=== PATIENT | male | born 1940 | race Caucasian/White ===

== ENCOUNTER → 2023-09-26 07:51 | Outpatient (REF) | payer MEDICARE, BC, SELFPAY | LOC: RAD 07:51 | PROVIDERS: ATTENDING PHYSICIAN Otolaryngology; FAMILY PHYSICIAN Family Medicine | DX: C44.222 Squamous cell carcinoma of skin of right ear and external auricular canal (principal) | CPT/HCPCS: 70492; Q9967 ==

== ENCOUNTER → 2023-11-07 16:34 | Outpatient (REF) | payer MEDICARE, BC, SELFPAY | LOC: RAD 16:34 | PROVIDERS: ATTENDING PHYSICIAN Otolaryngology; FAMILY PHYSICIAN Family Medicine | DX: E04.1 Nontoxic single thyroid nodule (principal) | CPT/HCPCS: 76536 ==

== ENCOUNTER → 2023-12-06 10:29 | Outpatient (REF) | payer MEDICARE, BC, SELFPAY ==
[2023-12-06 10:42] VITALS: BP 104/74; BP_SYST 83
== END ==
LOC: RADI 10:29
PROVIDERS: ATTENDING PHYSICIAN Otolaryngology; FAMILY PHYSICIAN Family Medicine
DX: E04.1 Nontoxic single thyroid nodule (principal)
CPT/HCPCS: 88173; 10005

== ENCOUNTER → 2024-01-19 07:12 | Outpatient (REF) | payer MEDICARE, BC, SELFPAY ==
[2024-01-19 08:54] LABS: Hematocrit 40.8 % (39.0-52.0); Hemoglobin 13.7 g/dL (13.0-18.0); Mean Corp Hgb Conc. 33.6 g/dL (33.0-37.0); Mean Corpuscular Volume 86.4 fL (80.0-94.0); Mean Platelet Volume 10.6 fL (7.4-10.4); Platelet Count 108 10^3/uL (130-400); Red Blood Cell Count 4.72 10^6/uL (4.70-6.10); Red Cell Dist. Width 13.5 % (11.5-14.5); White Blood Cell Count 4.2 10^3/uL (4.8-10.8)
[2024-01-19 09:26] LABS: ALT (SGPT) 15 U/L (0-50); AST (SGOT) 25 U/L (17-59); Albumin 4.2 g/dl (3.5-5.0); Alkaline Phosphatase 50 U/L (38-126); Blood Urea Nitrogen 34 mg/dl (9-20); Calcium 9.4 mg/dl (8.4-10.2); Carbon Dioxide 26 mmol/L (22-30); Chloride 105 mmol/L (98-107); Glucose 94 mg/dl (70-99); Potassium 4.4 mmol/L (3.5-5.1); Sodium 140 mmol/L (135-145); Total Bilirubin 1.5 mg/dl (0.2-1.3); Total Protein 6.8 g/dl (6.3-8.2); eGFR > 60.00
== END ==
LOC: SDSPAT 07:12
PROVIDERS: ATTENDING PHYSICIAN Otolaryngology; FAMILY PHYSICIAN Family Medicine; OTHER PHYSICIAN Internal Medicine Cardiovascular Disease; OTHER PHYSICIAN Specialist
DX: Z01.818 Encounter for other preprocedural examination (principal)
CPT/HCPCS: 36415; 80053; 85027

== ENCOUNTER 2024-02-08 06:18 | Day surgery (SDC) | payer MEDICARE, BC, SELFPAY ==
[2024-01-19 07:29] VITALS: BMI 27.9
[2024-02-08] VITALS (15 sets, daily range): BP systolic 10–126; BP diastolic 54–88; BMI 27.9
[2024-02-08 14:05] LABS: Ionized Calcium 1.14 mMOL/L (1.15-1.33)
[2024-02-08] MEDS: DILAUDID 0.25 MG IV (14:46)
--- NOTE | 2024-02-08 15:55 | PTCARENOTE ---
Pt arrived to [facility] from PACU s/p total thyroidectomy. Pt AAOx3, anterior neck dressing C/D/I, YAKELIN to the left of anterior neck draining sanguinous. Pt satting 96% on 2L NC. Pt c/o headache. Pt oriented to room, bed locked and in lowest position,
call chao within reach.
[2024-02-08] MEDS: TYLENOL 650 MG PO ×2 (16:28→20:54)
[2024-02-08] MEDS: OSCAL 500 + D 1000 MG PO ×2 (16:45→20:52)
[2024-02-08 21:19] LABS: Glucose - Point of Care 175 mg/dl (70-99)
[2024-02-09 03:47] VITALS: BP 102/63
[2024-02-09] MEDS: TYLENOL 650 MG PO ×2 (05:20→12:36)
[2024-02-09] MEDS: SYNTHROID 125 MCG PO (05:21)
[2024-02-09 07:06] LABS: Ionized Calcium 1.19 mMOL/L (1.15-1.33)
[2024-02-09 07:10] VITALS: BP 102/64
[2024-02-09] MEDS: TOPROL XL 50 MG PO (08:22)
[2024-02-09] MEDS: COZAAR 100 MG PO (08:22)
[2024-02-09] MEDS: IMDUR (EXTENDED RELEASE) 30 MG PO (08:23)
[2024-02-09] MEDS: THERAGRAN 1 TABLET PO (08:23)
[2024-02-09] MEDS: PROSCAR 5 MG PO (08:23)
[2024-02-09] MEDS: LIPITOR 40 MG PO (08:23)
[2024-02-09] MEDS: FLOMAX 0.4 MG PO (08:24)
[2024-02-09] MEDS: OSCAL 500 + D 1000 MG PO (08:26)
[2024-02-09 11:05] VITALS: BP 90/55
[2024-02-09 11:21] VITALS: BP 104/58
--- NOTE | 2024-02-09 12:11 | W.PN.ENT ---
Today's Communication
-
d/c planning
Impression / Plan
-
The patient is doing well POD 1 s/p total thyroidectomy for a large left thyroid mass. No signs of hematoma, change in voice or hypocalcemia. He will remain on OsCal at d/c and will taper as an outpatient. He has started levothyroxine and will
continue as an outpatient and see endocrinology. D/C planning.
Subjective Data
-
The patient denies pain this AM. He tolerated a diet without issue. He has some sore throat but no fever. He denies change in voice. No muscle cramping. BP was low this am. He reports he has been cutting one of his BP meds in half at home recently.
Denies lightheadedness
Objective Data
-
Vital Signs
Temp Pulse Resp BP Pulse Ox
97.7 F 79 16 104/58 96
02/09/24 11:05 02/09/24 11:05 02/09/24 11:05 02/09/24 11:21 02/09/24 11:05
Intake & Output
02/08/24 02/09/24 02/10/24
06:59 06:59 06:59
Intake:
Oral fluids 1440 / 1440
IV fluids (Total) 0 / 0
IV piggybacks 0 / 0
Output:
Drain Output (Total) 40 / 40
Left Neck Red-Menjivar A 40 / 40
Urine, Victor 800 / 800
Urine, Voided 650 / 650
Physical Exam
-
GEN: NAD, alert and oriented
HEENT: Dressing in place, YAKELIN drain stitch cut and removed. YAKELIN removed. Wound dressed with gauze and tape.
RESP: No stridor, no hoarseness
Labs
-
Labs:
Ionized calcium 1.14 --> 1.19
--- NOTE | 2024-02-09 13:03 | CM ---
Met with pt and family members at bedside
Pt reports he lives with his in a 2 story home; no steps to enter, 13 steps to 2nd fl
Independent at baseline, retired
DME - none
SNF - [facility] in past
HH - denies past hx
Has ride at discharge
PCP - Dr Sen
Pharm - [facility]
Plan - anticipate home no needs
== END 2024-02-09 13:40 | disposition home or self-care (01) ==
LOC: SDS 06:18
PROVIDERS: ATTENDING PHYSICIAN Otolaryngology; FAMILY PHYSICIAN Family Medicine
DX: C73 Malignant neoplasm of thyroid gland (principal); E04.2 Nontoxic multinodular goiter; E07.9 Disorder of thyroid, unspecified
CPT/HCPCS: 60240; 88307; 82330; 82962; C1776

== ENCOUNTER 2024-02-10 02:28 | Inpatient (IN) | payer MEDICARE, BC, SELFPAY ==
[2024-02-10] VITALS (26 sets, daily range): BP systolic 85–121; BP diastolic 58–84; BMI 27.2; BMI 26.6
[2024-02-10] MEDS: BENADRYL 50 MG IV (00:11)
[2024-02-10] MEDS: LOW STRENGTH ASPIRIN 324 MG PO (00:13)
[2024-02-10] MEDS: SOLU-CORTEF 200 MG IV (00:13)
--- NOTE | 2024-02-10 00:13 | ED.GENMED ---
History of Present Illness
General
Chief Complaint: Chest Pain
Source: patient, spouse and previous hospital records (Status post thyroidectomy yesterday. Discharged this morning)
Exam Limitations: none
Time Seen by Provider: 02/10/24 00:00
Nursing documentation reviewed up to this point in time: agreed with
History of Present Illness
History of Present Illness:
This is an 83-year-old gentleman with history of CAD, hypertension, hyperlipidemia, remote history of MD 20 years ago. Status post thyroidectomy yesterday, discharged from the hospital today.
He complains of substernal chest pain that began around 8 PM, persistent throughout the night. No shortness of breath, no nausea, no diaphoresis, no dizziness nor lightheadedness. does note that blood pressure was quite low upon discharge
this morning 80s systolic but patient had been feeling well.
He is chronically maintained on low-dose aspirin but this was discontinued 2 weeks ago in preparation for thyroidectomy.
Past History
Past History
ED Past Medical History: HTN and MD
ED Past Surgical History: Orthopedic (right rotator cuff repair)
Social History
Tobacco: Non-smoker
Alcohol: None
Drug: None
Personal:
Living: with family
Phy Exam
Physical Exam
Physical Exam:
GENERAL: 83-year-old gentleman appears his stated age, awake, alert, appears mildly uncomfortable. Cooperative. and daughter accompanying.
EYE: pupils equal and reactive. anicteric
NECK: 4 x 4 dressing anterior neck with scant serosanguineous drainage with dry and intact Tegaderm overlying. No soft tissue swelling.
ENT: posterior pharynx is clear, oral mucosa is moist. No rhinorrhea.
CARDIAC: Regular rate and rhythm. no murmur.
LUNGS: Clear breath sounds bilaterally, no acute respiratory distress, no wheezes/rales/rhonchi
ABDOMEN: Soft, nondistended, without focal tenderness, normoactive bowel sounds.
NEUROLOGICAL: Alert and oriented x3, no focal neuro deficits.
SKIN: Warm and dry, mildly pale in color, skin intact. No rash.
MUSCULOSKELETAL: No C/C/E. peripheral pulses are full and equal b/l. No palpable tenderness.
PSYCH: Normal and appropriate interaction.
Scores
Heart Score for Chest Pain Patients
STEMI patient?: Yes
Course
Orders/Labs/Results
Orders:
Orders
02/09/24 23:56
Electrocardiogram (*1) Urgent
Reason for Study: Chest Pain
EKG- Treatment ONCE
Complete Blood Count/With Diff Urgent
Comprehensive Metabolic Panel Urgent
Troponin I Urgent
02/10/24 00:03
EKG [Electrocardiogram (*1)] Urgent
Reason for Study: Chest Pain
02/10/24 00:04
EKG- Treatment ONCE
02/10/24 00:08
Aspirin Chewable [Low Strength Aspirin] 324 mg PO NOW STA
Diphenhydramine [Benadryl] 50 mg IV NOW STA
Hydrocortisone Sod Succinate [Solu-Cortef] 200 mg IV NOW STA
02/10/24 00:11
PTT Urgent
02/10/24 00:21
Heparin 5,000 units .ROUTE .STK-MED ONE
02/10/24 00:22
Fentanyl Citrate/Pf [Sublimaze] 100 mcg .ROUTE .STK-MED ONE
Midazolam HCl [Versed] 2 mg .ROUTE .STK-MED ONE
Verapamil Injectable [Isoptin/Verapamil Injection] 5 mg .ROUTE .STK-MED ONE
02/10/24 00:23
Heparin 10,000 units .ROUTE .STK-MED ONE
Heparin 1000 Units/500 ml [Heparin] 1,000 units in 500 ml .ROUTE .STK-MED
Heparin Sodium,Porcine/Ns/Pf [Heparin 2000 Units/1000 ml] 2,000 unit in 1,000 ml .ROUTE .STK-MED
Nitroglycerin [Tridil] 1,500 mcg .ROUTE .STK-MED ONE
02/10/24 01:21
Heparin 1000 Units/500 ml [Heparin] 1,000 units in 500 ml .ROUTE .STK-MED
02/10/24 01:47
Ticagrelor [Brilinta] 180 mg .ROUTE .STK-MED ONE
02/10/24 02:19
Admit Patient As Directed
Co-Sign Provider:
Level of Care: Inpatient admission
Assign to:: IVU
Physician / Group: Chapito until 7AM, then DCA
Diagnosis: Inferior STEMI
Patient Condition: Fair
Reason for Hospitalization: Inferior STEMI
Expected length of stay greater than two midnights?: Yes
ELOS- Estimated Length of Stay in days: 3
I certify the patient meets the requirements for IP care: Yes
Reason for Overnight Stay: Standard of Care
Electrocardiogram (*1) Urgent
Reason for Study: Other
Other Reason for Exam: s/p intervention
Code Status As Directed
Resuscitation Status: Full Code
CARDIAC REHAB CONSULT Routine
Co-Sign Provider:
Type of Cardiac Rehab Referral: Outpatient
Diagnosis: STEMI
Date of Diagnosis/Surgery: 02/10/2024
Referring Provider: Abel Uriarte
Acetaminophen [Tylenol] 650 mg PO Q4HPRN PRN
Fentanyl Citrate/Pf [Sublimaze] 50 mcg IV [id number] PRN
Midazolam HCl [Versed] 1 mg IV Q5MPRN PRN
Morphine Sulfate 2 mg IV Q1HPRN PRN
Nitroglycerin Sublingual [Nitrostat (Sublingual)] 0.4 mg SL [id number] PRN
Oxycodone/Acetaminophen [Percocet 5/325] 1 tablet PO Q4HPRN PRN
Activity As Directed
Activity Level: Out of Bed- Chair
Comment: bed/chair rest for 2 hours then out of bed ad юлия
Combat Systems Officer Procedure As Directed
Cardiac Cath Procedure: percutaneous coronary intervention
Intake/ Output As Directed
Frequency: Per unit guidelines
Notify MD As Directed
Notify physician if: immediately for chest pain or bleeding from access site(s)
Radial Artery Hemostasis Method As Directed
Instructions:: 3 mL out at 2 hour posts placement of band
3 mL out at 2 1/2 hours post placement of band
3 mL out at 3 hours post placement of band
Off at 3 1/2 hours post placement of band
If any oozing or hemotoma occurs:: re-inflate band and call provider
Site Checks As Directed
Check access site for bleeding/hematoma: Yes
Comment: on arrival, Q15min x4, Q30min x2, Q1 hr x2, Q2 hr x2, Q4 hr or per
protocol
Vascular Checks As Directed
Location: distal to access site - pulse check
Frequency: Other
Comment: on arrival, Q15min x4, Q30min x2, Q1 hr x2, Q2 hr x2, Q4 hr or per protocol
Venous Foot Pumps As Directed
Location: Bilateral feet
Vital Signs As Directed
Frequency: Other
Additional Instructions:: on arrival, Q15min x4, Q30min x2, Q1 hr x2, Q2 hr x2, then Q4 hr or per unit
protocol
PRN Pain Medication Management As Directed
May give lesser potent ordered pain med per pt: Yes
preference::
Protocol:: Medication orders for pain may be administered in a
manner that supports deferring to patient preference
when the pt is:
- Requesting an ordered lesser potent pain medication.
Least to most potent pain medications are defined
as: acetaminophen < NSAID < tramadol < opioids
(morphine, oxycodone, hydromorphone).
- Requesting a lesser dose of the same medication IF
ORDERED.
- Requesting a less intrusive route of administration
if both routes are prescribed by the provider (PO <
IV).
02/10/24 02:20
Activity As Directed
Activity Level: Bedrest
Comment: refer to hemostasis device used for bedrest duration, then ambulate ad юлия
Femoral Artery Hemostasis Method As Directed
Procedure performed:: Percutaneous Coronary Int
Type of femoral hemostasis method used:: Internal Closure Device
Duration of bedrest (hours):: 3
Call provider if:: hematoma present after hemostasis achieved
Head of Bed-Restrictions As Directed
Comment: may elevate head of bed 30 degrees
DX Deep Vein Thrombosis Video Routine
02/10/24 02:30
0.9% Sodium Chloride 1000 ml [Nss] 1,000 ml IV PER PROTOCOL
Infusion rate in mL/kg/hr:: 1.5
Infusion rate in mL/hr:: 122
Duration of infusion (hours):: 5
02/10/24 03:48
Basic Metabolic Panel IN AM
Complete Blood Count/No Diff IN AM
Glycohemoglobin (HgbA1c) Routine
Magnesium Routine
Comment: ADD ON
Troponin I Q6H
02/10/24 06:00
Echo 2D MMode Color/Doppler IN AM
Reason for Study: Inferior STEMI
Electrocardiogram (*1) IN AM
Reason for Study: Other
Other Reason for Exam: s/p intervention
Cholesterol Lowering
Cholesterol Lowering: Sodium, 2 Gram
Levothyroxine [Synthroid] 125 mcg PO DAILY @ 0600
02/10/24 08:00
Aspirin Chewable [Low Strength Aspirin] 81 mg PO DAILY
Atorvastatin [Lipitor] 40 mg PO DAILY
Cholecalciferol (Vitamin D3) [VITAMIN D3 (cholecalciferol)] 50 mcg PO DAILY
Cyanocobalamin [Vitamin B-12] 1,000 mcg PO DAILY
Finasteride [Proscar] 5 mg PO DAILY
ISOSORBIDE MONOnitrate ER [Imdur (Extended Release)] 30 mg PO DAILY
Losartan [Cozaar] 100 mg PO DAILY
Metoprolol Xl [Toprol Xl] 50 mg PO DAILY
Multivitamin [Theragran] 1 tablet PO DAILY
Ticagrelor [Brilinta] 90 mg PO BID
azelastine 1 spray NASAL BID
02/10/24 08:30
Troponin I Q6H
02/10/24 09:00
Tamsulosin [Flomax] 0.4 mg PO DAILY@0900
02/10/24 14:30
Troponin I Q6H
02/11/24 06:00
Basic Metabolic Panel IN AM
Complete Blood Count/No Diff IN AM
02/12/24 06:00
Basic Metabolic Panel IN AM
Complete Blood Count/No Diff IN AM
Abnormal Lab Results
02/10/24
00:11
RBC 4.20 L 10^6/uL
(4.70-6.10)
Hgb 12.3 L g/dL
(13.0-18.0)
Hct 36.1 L %
(39.0-52.0)
Plt Count 116 L 10^3/uL
(130-400)
MPV 10.5 H fL
(7.4-10.4)
Abs Immat Gran (auto) 0.1 H 10^3/uL
(0-0.05)
Absolute Monos (auto) 0.7 H 10^3/uL
(0.1-0.6)
Immature Gran % 1.4 H %
(0-0.5)
Monocytes % 10.6 H %
(1.7-9.3)
BUN 36 H mg/dl
(9-20)
Glucose 117 H mg/dl
(70-99)
Total Bilirubin 1.4 H mg/dl
(0.2-1.3)
Alkaline Phosphatase 30 L U/L
(38-126)
02/10/24 00:11
02/10/24 00:11
Vital Signs
Initial and Last Documented VS:
Initial Vital Signs
Pulse Resp
63 15
02/10/24 00:03 02/10/24 00:03
Last Documented Vital Signs
Temp Pulse Resp BP Pulse Ox
98 F 74 23 116/84 94
02/10/24 02:59 02/10/24 00:15 02/10/24 00:15 02/10/24 00:33 02/10/24 04:59
MDM/Problems Addressed
Differential Diagnosis Includes:
Patient presents with chest pain that began a few hours ago, EKG consistent with STEMI�acute inferior wall MD, new compared to previous EKG.
Urgent discussion with interventional cardiology, STEMI alert initiated 0005.
Patient has been given 324 mg chewable aspirin.
I have placed a call to ENT to discuss relative contraindication for initiation of heparin�antiplatelet.
Chronic conditions affecting care: HTN, CAD and Other (Hyperlipidemia, thyroidectomy performed yesterday)
Acute Exacerbation and/or Progression of Chronic Illness: CAD
*Pulse Oximetry
Patient hypoxic: no
*EKG
Interpreted by ED Provider?: Yes
Interpretation: abnormal
Comparison EKG: changes noted
Rate: bradycardiac
Rhythm: sinus and PVC's
Mclean: normal axis
Interval: normal interval
QRS Pattern: normal QRS
Ischemia: ST elevation (Acute STEMI, inferior wall MD with reciprocal depression anteriorly)
*Financial Underwriter Interpretation
Rate: bradycardiac
Interpretation: abnormal
Rhythm: sinus and PVC's
*Critical Care Note
Total Time (30-74mins, 75-104mins- exclusive of procedures): 30
comment:
Critical care statement: A total of 30 minutes of critical care time was provided for this patient. This includes management of unstable vital signs, evaluation of the patient at bedside, reviewing the patient's pertinent medical records, discussion
with consultants, review of old EKGs and review of pertinent medical records. This time with separate from time utilized to perform the aforementioned documented procedures
Update Note
Update Note:
02/10/2024 00:05 AM
EKG shows STEMI, acute inferior wall MD, new compared to previous.
Case urgently discussed with interventional cardiology, Dr. Matthews. Although status post thyroidectomy yesterday he agrees with initiating STEMI alert. Will begin promptly.
Will give 324 mg chewable aspirin.
Call placed to ENT to discuss potential contraindication for heparin/antiplatelet.
reports allergy to IV contrast causing nausea, vomiting. Will pretreat with Solu-Cortef and Benadryl.
02/10/2024 0014 AM
Case discussed with ENT. Although certainly risk for bleeding, benefit outweighs the risk.
Will give IV heparin bolus and discussed Brilinta with compressed gas equipment mechanic upon arrival.
BP somewhat soft 90 systolic and notes blood pressure was low this morning. Will give IV fluid bolus. Patient continues to deny lightheadedness, dizziness.
ED Attending Note
-
Portions of this chart may have been created with voice recognition software.� Occasional wrong word or��sound alike� substitutions may have occurred due to the inherent limitations of voice recognition software.
Discharge Plan
Departure
Patient Disposition: Admit
Date of Disposition: 02/10/24
Time of Disposition: 00:27
Admit to: micro lab analyst
Admit to doctor: Chapito
Presentation/result/management discussed w/ accepting MD/DO: cardiology
Condition: Critical
Discharge Problem:
ST elevation (STEMI) myocardial infarction
Interventions
Interventions:
*Risk Screen - Suicide Last Done: 02/09/24 23:57
*General Assessment Last Done: 02/10/24 00:23
*Neglect/Abuse Screening Last Done: 02/09/24 23:57
ED- Fall Risk Assessment Last Done: 02/10/24 01:09
*ED COVID-19 Vaccine History Last Done: 02/10/24 00:23
*Nursing Disposition Last Done: 02/10/24 01:09
ED- Cardiac Assessment Last Done: 02/10/24 00:20
Discharge Date and Time
Discharge Date/Time: 02/10/24 01:09
[2024-02-10 00:29] LABS: APTT 28.3 Sec (23.4-35.0)
--- NOTE | 2024-02-10 00:34 | HPS.HSE ---
Family Physician
-
Family Physician: Adrien Harper
Chief Complaint
-
Chest pain.
History of Present Illness
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 The patient
presented to emergency room where EKG showed a RBBB and inferior STEMI. The malthouse laborer was activated. ENT distribution engineering technologist was notified regarding cardiac catheterization/bleeding risk and reportedly stated it was a matter of risk benefit. The patient has
a history of IV contrast allergy (vomiting). He was given IV methylprednisolone in the emergency room.
Medical History
Past Medical History
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
Past Surgical History: Reports Other (Thyroidectomy, 02/08/2024.)
Social History
Tobacco: Non-smoker
Alcohol: None
Drug: None
Personal:
Living: With Family
Employment: Retired
Family History
Family History: Not pertinent
Allergies / Home Medications
Allergies reflects when Allergies were last updated in [employer].
Home Medications with original date entered in [employer]
Allergy/Medication List:
Home medications:
1. Aspirin 81 mg daily.
2. Atorvastatin 40 mg daily.
3. Azelastine nasal spray twice daily.
4. Calcium carbonate/vitamin D.
5. Cholecalciferol 2000 units daily.
6. Coenzyme every 10.
7. Vitamin B12 1000 mcg daily.
8. Finasteride 5 mg daily.
9. Hydrocodone/acetaminophen every 4 as needed.
10. Isosorbide mononitrate 30 mg daily.
11. Krill oil 300 mg daily.
12. Acidophilus probiotic daily.
13. Levothyroxine 125 mcg daily.
14. Losartan 100 mg daily.
15. Metoprolol succinate 50 mg daily.
16. Multivitamin.
17. Tamsulosin 0.4 mg daily.
Allergies:
1. Codeine (nausea/vomiting).
2. Hydrocodone (nausea/vomiting).
3. Iodine based contrast (vomiting).
4. Levothyroxine (muscle cramps).
5. Lisinopril (cough).
6. Oxycodone (nausea/vomiting).
Review of Systems
-
History Source: Patient and Family
A 12 point ROS was completed and negative except as noted: Yes
Constitutional: Reports No Symptoms
EENT: Reports No Symptoms
Respiratory: Reports No Symptoms
Cardiac: Reports Chest Pain
Abdomen/GI: Reports No Symptoms
: Reports No Symptoms
Physical Exam
Vital Signs
Vital Signs
Pulse Resp BP Pulse Ox
74 23 113/79 95
02/10/24 00:15 02/10/24 00:15 02/10/24 00:18 02/10/24 00:15
Physical Exam
General: Well Developed, Well Nourished and Appears in Distress
HEENT: NormoCephalic, Anicteric, Moist mucous membranes, PERRLA, Moncure Conjunctivae, Nose Appears Normal, Ears Appear Normal and Other (Surgical bandage on the anterior neck.)
Respiratory: Clear and Non Labored Respirations
Cardiac: S1/S2 and Regular Rhythm
Breast: Deferred by me
GI: Non Tender, Non Distended and Normal Bowel Sounds
Rectal: Deferred by Provider
Genito-urinary: Deferred by me
Musculoskeletal: No Clubbing, No Cyanosis and No Edema
Skin: Warm and Dry
Neuro: AO x 3
Laboratory Results
-
Pending.
Data Reviewed
-
Medical Tests (Nuc Med, Echo, EKG etc): Image Personally Visualized and interpreted
Lab Data: Labs Reviewed by me
Impression/Plan
-
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
(02/08/2024) presenting with chest pain and EKG consistent with inferior STEMI.
#STEMI/CAD
-Urgent cardiac catheterization.
-Discussed with ENT. Benefit >risk.
-Discussed with patient and family. Consent is signed and on the chart.
-Further instructions to follow.
[2024-02-10 00:48] LABS: % Basophils 0.3 % (0-2); % Eosinophils 0.8 % (0-6); % Immature Granulocytes 1.4 % (0-0.5); % Monocytes 10.6 % (1.7-9.3); % Neutrophils 58.9 % (42.2-75.2); Absolute Eosinophils 0.1 10^3/uL (0-0.7); Absolute Immature Granulocytes 0.1 10^3/uL (0-0.05); Absolute Lymphocytes 1.8 10^3/uL (1.2-3.4); Absolute Monocytes 0.7 10^3/uL (0.1-0.6); Absolute Neutrophils 3.8 10^3/uL (1.4-6.5); Hematocrit 36.1 % (39.0-52.0); Hemoglobin 12.3 g/dL (13.0-18.0); Mean Corp Hgb Conc. 34.1 g/dL (33.0-37.0); Mean Corpuscular Hgb 29.3 pg (27.0-31.0); Mean Platelet Volume 10.5 fL (7.4-10.4); Nucleated Red Blood Cells % 0 % (-); Platelet Count 116 10^3/uL (130-400); Red Cell Dist. Width 13.9 % (11.5-14.5); White Blood Cell Count 6.4 10^3/uL (4.8-10.8)
[2024-02-10 00:59] LABS: Troponin I < 0.012 ng/ml
[2024-02-10 01:03] LABS: ALT (SGPT) 12 U/L (0-50); AST (SGOT) 41 U/L (17-59); Albumin 3.9 g/dl (3.5-5.0); Alkaline Phosphatase 30 U/L (38-126); Blood Urea Nitrogen 36 mg/dl (9-20); Calcium 9.2 mg/dl (8.4-10.2); Carbon Dioxide 29 mmol/L (22-30); Chloride 99 mmol/L (98-107); Estimated Creatinine Clearance 50 ml/min; Glucose 117 mg/dl (70-99); Potassium 5.1 mmol/L (3.5-5.1); Sodium 135 mmol/L (135-145); Total Bilirubin 1.4 mg/dl (0.2-1.3); Total Protein 6.4 g/dl (6.3-8.2); eGFR > 60.00
--- NOTE | 2024-02-10 02:25 | ITS.CL.ANGIO ---
Liquor Clerk - Angioplasty
Angioplasty
Procedure Report:
CARDIAC CATHETERIZATION REPORT
Date of Procedure: 02/10/2024
Referring: Dimple Spencer D.O.
INDICATION: Inferior ST elevation myocardial infarction.
PROCEDURE:
1. Left heart catheterization.
2. Coronary angiography.
3. Successful PCI of the distal RCA.
4. Successful PCI of proximal RCA dissection.
ACCESS:
6 Polish right radial artery.
6 Polish right common femoral artery using a modified Seldinger technique with a micropuncture kit under ultrasound guidance.
CATHETERS:
1. 5 Polish JL 3.5.
2. 6 Polish JR4.
3. 5 Polish multipurpose.
4. 6 Polish JR4 guiding catheter.
HEMODYNAMIC DATA
Weight (kg): 80.7
AO (s/d/x, mmHg): 113/75/92
LV (s/x mmHg): 114/15
LEFT VENTRICULOGRAPHY: Not performed.
CORONARY ANGIOGRAPHY
Dominance: Right.
Left Main: Congenitally absent.
LAD: Large size vessel arising directly off the aorta and giving rise to 1 large diagonal. There are minor luminal irregularities throughout the entire vessel.
Ramus: Congenitally absent.
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 OM1 is a medium size branch which subsequently bifurcates into 2 smaller
daughter branches. There is a 70% lesion in the proximal third of OM1. There are 50-60% lesions in the proximal thirds of both daughter branches.
RCA: Large size, dominant vessel. There is severe tortuosity in the proximal vessel with a whitaker's crook. The vessel is acutely occluded in its distal margin.
INTERVENTION(S)
1. Successful PCI of the acute distal RCA occlusion (overlapping Medtronic [place] 3.5 x 38 NATALIE, 3.5 x 15 NATALIE, postdilated with a 3.5 NC balloon) with reduction in stenosis to 0%, restoring JODI-3 flow.
2. Successful PCI of proximal RCA GuideLiner dissection (Medtronic [place]ian [place] 4.5 x 15 NATALIE) with stabilization of the dissection.
Narrative:
The decision was made to proceed with percutaneous coronary intervention. The diagnostic catheter was removed over a wire and a 6Fr JR4 guiding catheter was advanced to the aortic root and seated in the right coronary artery. The lesion appeared to
be an acute on chronic total occlusion. Prior films were reviewed, which showed a significant burden of disease in this area and the patient did have prior abnormal stress testing with shortness of breath requiring isosorbide mononitrate.
Additional heparin was given and a Power Turn Flex wire was advanced with a guide liner as well as a quick cross microcatheter for support given the severe tortuosity of the right coronary artery. The power turn flex was advanced down to the level
of the occlusion and the microcatheter was advanced for support. The GuideLiner was then advanced over the microcatheter through the whitaker's crook and into the mid RCA. Unfortunately, the power turn flex wire would not cross the occlusion.
The power turn flex wire was withdrawn and a whisper wire was advanced through the quick cross microcatheter. The whisper wire was able to traverse the occlusion with some difficulty, though the wire appeared to be free after it passed through the
occluded segment. The quick cross microcatheter was advanced over the whisper wire and into the distal RCA. The whisper wire was withdrawn and gentle angiography was performed through the quick cross microcatheter, confirming intraluminal
placement in the distal RCA. The power turn flex wire was readvanced through the quick cross microcatheter which was then removed using a wire pinning technique.
The distal RCA acute on chronic 100% lesion was predilated with a 1.5 x 12 semi-compliant balloon to 12 soila. The semicompliant balloon was withdrawn and the 2.0 x 12 semicompliant balloon was advanced over the wire and into the distal RCA. The RCA
was predilated to 12 soila. Repeat angiography showed a long, severely diseased distal RCA segment. The semicompliant balloon was withdrawn and a 3.0 x 15 noncompliant balloon was advanced. The entire distal RCA segment was predilated to 12 soila.
The noncompliant balloon was removed and a Medtronic [place] 3.5 x 38 drug-eluting stent was advanced. The stent was deployed at 12 atmospheres. The stent balloon was deflated and pulled back, subsequently using it to predilate the more
proximal part of the lesion. The stent balloon was removed. A Medtronic [place]ian [place] 3.5 x 15 drug-eluting stent was advanced into the distal RCA. Meticulous care was taken while positioning the stent, ensuring that the distal aspect of the
stent would overlap with the previous stent and that the proximal aspect of the stent placement would ensure complete lesion coverage. After we were satisfied with this position, the stent was deployed at 12 soila. The stent balloon was removed. A
3.5 x 15 noncompliant balloon was advanced into the stents and the stents were postdilated to 15 atmospheres in the distal margin and 16 soila in the proximal margin including the overlap.
Angiography was performed in orthogonal views, confirming good stent expansion and an excellent angiographic result, however it also revealed the presence of a grade 1 dissection in the proximal RCA, likely due to the GuideLiner. Indeed, on further
review the dissection was present after placement of the GuideLiner in the more distal RCA. The decision was made to place a stent over this dissection in order to stabilize the lesion given the severe tortuosity and difficulty in navigating the
artery. The GuideLiner was reextended beyond this dissection plane and a Medtronic [place]ian [place] 4.5 x 15 drug-eluting stent was advanced. The GuideLiner was withdrawn to expose the dissected segment. The stent was positioned over the dissection
and deployed at 12 soila. The stent balloon was withdrawn and the guide liner was readvanced, but unfortunately would not pass beyond the stented segment. A 5.0 x 12 NC balloon was advanced for post dilation, but this too would not cross the stented
segment. After multiple attempts of manipulation, wire access was lost to the vessel. The vessel was reengaged multiple times and the power turn flex wire was advanced through the stent at least twice, but we could not get a balloon or GuideLiner
to advance beyond the proximal margin of the artery.
Final angiography was performed, showing good stent apposition in the distal vessel as well as in the proximal vessel, JODI-3 flow throughout the vessel and resolution of the proximal vessel dissection and an overall excellent angiographic result.
The coronary wire was withdrawn and the guide was disengaged from the artery. The catheter was removed over a standard J-wire.
Closure Device: Vascular band for the right radial artery, 6 Polish Angio-Seal for the right common femoral vein.
Radiation (mGy): 1864.98
DAP (cm2.Gy): 140.77
Fluoroscopy time (minutes): 30.1
Sedation time (minutes): 85
CONCLUSIONS
1. 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
LAD and an acute on chronic occlusion of the distal RCA status post successful PCI (overlapping Medtronic [place]ian [place] 3.5 x 38 NATALIE, 3.5 x 15 NATALIE, postdilated with a 3.5 NC balloon) with reduction in stenosis to 0%, restoring JODI-3 flow.
2. 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
3. Normal filling pressures (LVEDP = 15 mmHg at 80.7 kg).
4. Severe right subclavian tortuosity, requiring femoral access for engagement of the right coronary artery.
RECOMMENDATIONS:
1. Expectant management after cardiac catheterization via right radial and right femoral approach.
2. Limited weight bearing on the right wrist for one week.
3. Dual antiplatelet therapy with aspirin and ticagrelor for at least 12 months, followed by aspirin indefinitely.
4. Aggressive risk factor modification with high-dose, high potency statin. Goal LDL <55.
5. Guideline directed medical therapy as hemodynamics will tolerate.
6. Echocardiogram ordered and pending.
7. ENT consult given recent thyroidectomy and obligatory antiplatelet therapy.
8. Referral to cardiac rehab.
9. Further cardiac catheterization should be performed from a femoral approach.
Copy to: Abel Edmonds M.D., Adrien Harper M.D.
Abel Uriarte DO, FACC, FACP
--- NOTE | 2024-02-10 03:41 | PTCARENOTE ---
Pt. received from laborer wood preserving plant. Pt. AOx3, tele reading NSR w 1st degree block. TR band on R radial, R femoral site c/d/i. Pt. reports no CP. RN explains to pt and family plan of care. Pt verbalizes understanding. Call chao within reach. Continuing to
monitor at this time.
[2024-02-10 04:02] LABS: Hematocrit 33.9 % (39.0-52.0); Hemoglobin 11.7 g/dL (13.0-18.0); Mean Corp Hgb Conc. 34.5 g/dL (33.0-37.0); Mean Corpuscular Hgb 29.3 pg (27.0-31.0); Mean Corpuscular Volume 84.8 fL (80.0-94.0); Mean Platelet Volume 10.5 fL (7.4-10.4); Platelet Count 98 10^3/uL (130-400); Red Cell Dist. Width 13.7 % (11.5-14.5); White Blood Cell Count 6.8 10^3/uL (4.8-10.8)
[2024-02-10 05:12] LABS: Blood Urea Nitrogen 34 mg/dl (9-20); Calcium 9.3 mg/dl (8.4-10.2); Carbon Dioxide 24 mmol/L (22-30); Chloride 103 mmol/L (98-107); Estimated Creatinine Clearance 55 ml/min; Glucose 148 mg/dl (70-99); Potassium 4.5 mmol/L (3.5-5.1); Sodium 135 mmol/L (135-145); eGFR > 60.00
[2024-02-10] MEDS: SYNTHROID 125 MCG PO (05:12)
[2024-02-10] MEDS: CORDARONE 103 MG IV (05:51)
[2024-02-10 06:15] LABS: Magnesium 1.7 mg/dl (1.6-2.3)
--- NOTE | 2024-02-10 06:28 | W.PN.UPDATE ---
Update Note
Progress Note Update
-NSVT overnight, freq PVCs -probably reperfusion arrhythmia- gave Amio bolus, repleted Mg
[2024-02-10] MEDS: MAGNESIUM SULFATE 50 IV (06:29)
--- NOTE | 2024-02-10 06:40 | PTCARENOTE ---
Pt.'s tele reading NSR w PVCs, NSVT. PA notified. Amio bolus given, AM labs done. Mg 1.7. 2gram mg rider given. Continuing to monitor at this time
--- NOTE | 2024-02-10 08:38 | W.PN.CARDCBS ---
Addendum entered and electronically signed by Giles Cooper DO 02/10/24 09:59:
I saw and examined the patient.
The Dairy Hand's note was reviewed and I agree with the note.
Comment:
Patient resting comfortably, no complaints. No CP, sob, palpitations, or weakness.
R radial, R groin sites c/d/i, soft non-tender, no hematoma
Tele SR RBBB, PVCs NSVT vs AIVR noted. Single episode 20s in duration, patient asymptomatic; EKG SR RBBB
S/p inferior STEMI with PCI to distal RCA for 100% occlusion followed by PCI/NATALIE to prox RCA for dissection 02/10/2024
ASA/Brilinta, Atorvastatin 40 mg daily; Toprol XL 50 mg daily, Losartan 100 mg daily, imdur 30 mg daily
Trend trop to peak, monitor on telemetry
Amiodarone 400 mg TID 02/09-02/10; reduce to 200 mg TID 02/11; monitor EKG
Echo pending
Appreciate input by ENT, continue synthroid
Original Note:
Today's Communication / Plan
-
Continue aspirin, Brilinta
Continue atorvastatin 40mg daily
Trend trop to peak
Start amiodarone 400mg TID
Echo monday
CVE in AM.
Impression / Plan
-
PCP: Dr. Harper
Mixer Helper: Dr. Edmonds
Impression:
Presented with chest pain
Inferior STEMI 02/10/2024
NSVT
h/o [place] 12/2005
CAD
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
100% distal RCA occlusion s/p overlapping NATALIE 02/10/2024
proximal RCA dissection s/p NATALIE 02/10/2024
HTN
HLD
SABRINA
RBBB
Thyroid mass s/p thyroidectomy 02/08/2024
LHC 02/10/2024: LM: Congenitally absent. LAD: Arises directly off the aorta, minor luminal irregularities. 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 70% lesion of proximal OM1. RCA:
Severe tortuosity in the proximal vessel with a whitaker's crook, acutely occluded in the distal margin. Intervention: Successful PCI of acute distal RCA occlusion w/ overlapping [place] 3.5 x 31 and 3.5 x 15 NATALIE. Successful PCI of proximal RCA
GuideLiner dissection w/ Willian 4.5 x 15 mm NATALIE.
Plan:
-Presented 02/09/2024 w/ approximately 4 hours of chest pain. Initial EKG showed inferior STEMI. Taken urgently to cathead operator.
-Found to have 100% occlusion of distal RCA which was successfully stented. Also had dissection of proximal RCA which was successfully stented.
-No further chest pain this AM.
-Troponin trending up to 17.7 this AM, continue to trend to peak.
-Continue DAPT with aspirin and Brilinta.
-Check echo Monday, 02/11.
-BP stable. Continue Imdur, Losartan, and Toprol.
-EKG this AM improved. Remains in SR on telemetry, however is having runs of NSVT, asymptomatic.
-Will start amiodarone 400mg TID. Continue Toprol 50mg daily.
-K 4.5. Mag 1.7. Mag repleted this AM. Keep K >4, mag >2.
-Hgb A1c pending.
-Check CVE in AM. Continue lipitor 40mg daily.
Progress Note - Mixer Helper
Subjective
Date of Service: February 10, 2024
No complaints this AM. No further chest pain.
Objective
Labs:
02/10/24 03:48
02/10/24 03:48
Labs
Hgb 11.7 g/dL (13.0-18.0) L 02/10/24 03:48
Hct 33.9 % (39.0-52.0) L 02/10/24 03:48
Plt Count 98 10^3/uL (130-400) L 02/10/24 03:48
APTT 28.3 Sec (23.4-35.0) 02/10/24 00:11
Sodium 135 mmol/L (135-145) 02/10/24 03:48
Potassium 4.5 mmol/L (3.5-5.1) 02/10/24 03:48
BUN 34 mg/dl (9-20) H 02/10/24 03:48
Creatinine 1.0 mg/dL (0.7-1.3) 02/10/24 03:48
Glucose 148 mg/dl (70-99) H 02/10/24 03:48
Troponins
02/10/24 02/10/24
00:11 03:48
Troponin I < 0.012 17.700 H* D
Vital Signs and I&O:
Vital Signs
Temp Pulse Resp BP Pulse Ox
97.5 F 109 16 113/76 93
02/10/24 07:28 02/10/24 08:30 02/10/24 07:28 02/10/24 07:30 02/10/24 07:28
Vital Signs
Temp Pulse Resp BP Pulse Ox
97.5 F 109 16 113/76 93
02/10/24 07:28 02/10/24 08:30 02/10/24 07:28 02/10/24 07:30 02/10/24 07:28
Physical Exam
Physical Exam
GEN: No distress, awake, alert, oriented x3
HEENT: supple, anicteric, mmm
LUNGS: CTA b/l, no wheezes/rales
CV: Reg, S1/S2, no murmur
EXT: No clubbing, cyanosis, or edema
NEURO: Gross non-focal
SKIN: Warm, dry no rash. R groin soft, dressing c/d/i
[2024-02-10 09:05] LABS: Glycohemoglobin (HgbA1c) 5.5 % (4.0-5.6)
[2024-02-10] MEDS: COZAAR 100 MG PO (09:23)
[2024-02-10] MEDS: TOPROL XL 50 MG PO (09:23)
[2024-02-10] MEDS: VITAMIN B-12 1000 MCG PO (09:23)
[2024-02-10] MEDS: FLOMAX 0.4 MG PO (09:23)
[2024-02-10] MEDS: BRILINTA 90 MG PO ×2 (09:23→19:13)
[2024-02-10] MEDS: PROSCAR 5 MG PO (09:24)
[2024-02-10] MEDS: LIPITOR 40 MG PO (09:24)
[2024-02-10] MEDS: IMDUR (EXTENDED RELEASE) 30 MG PO (09:24)
[2024-02-10] MEDS: LOW STRENGTH ASPIRIN 81 MG PO (09:24)
[2024-02-10] MEDS: THERAGRAN 1 TABLET PO (09:24)
[2024-02-10] MEDS: VITAMIN D3 (cholecalciferol) 50 MCG PO (09:24)
--- NOTE | 2024-02-10 09:35 | CON.MD ---
Addendum entered and electronically signed by Jimmy Schultz MD 02/10/24 09:40:
Ca - 9.3
Original Note:
Consultation - Medical
-
PA s/p thyroidectomy
83 yo c HTN, CAD s/p thyroidectomy 02/07 presented last PM with chest pain, dx'ed with PA
Stent placed, pt now on Brilinta and ASA
PE - Pt awake and alert
Voice normal
Neck - no hematoma or drainage
A/P PA s/p thyroidectomy
Stable from ENT standpt
Need for anticoagulation outweighs risk of post op bleeding
Stable
Synthroid 125 mcg
[2024-02-10] MEDS: PACERONE 400 MG PO ×2 (17:43→22:15)
[2024-02-10] MEDS: TYLENOL 650 MG PO (19:12)
--- NOTE | 2024-02-10 20:13 | PTCARENOTE ---
Pt. received at change of shift. Pt. seen and assessed in room. Pt. AOx3 with at the bedside. No complaints of chest pain, complaining of 4/10 throat pain at surgical site. PRN tylenol administered. Pt. hypotensive 90s/60s with no complaints of
dizziness. Tele reading NSR with PVCs. 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 R femoral site c/d/i and soft. RN explains plan of care, pt. verbalizes understanding of plan of care. Call chao within reach. Continuing to monitor at this time.
[2024-02-11] VITALS (8 sets, daily range): BP systolic 88–113; BP diastolic 61–83; BMI 26.9
[2024-02-11 05:02] LABS: Hematocrit 34.7 % (39.0-52.0); Mean Corp Hgb Conc. 34.7 g/dL (33.0-37.0); Mean Corpuscular Hgb 29.4 pg (27.0-31.0); Mean Corpuscular Volume 84.8 fL (80.0-94.0); Platelet Count 98 10^3/uL (130-400); Red Blood Cell Count 4.08 10^6/uL (4.70-6.10); Red Cell Dist. Width 13.7 % (11.5-14.5); White Blood Cell Count 5.4 10^3/uL (4.8-10.8)
[2024-02-11 05:08] LABS: Blood Urea Nitrogen 25 mg/dl (9-20); Calcium 8.6 mg/dl (8.4-10.2); Carbon Dioxide 28 mmol/L (22-30); Chloride 104 mmol/L (98-107); Estimated Creatinine Clearance 55 ml/min; Glucose 100 mg/dl (70-99); HDL Cholesterol 65 mg/dl; LDL Cholesterol, Calculated 39 mg/dl; Potassium 3.9 mmol/L (3.5-5.1); Sodium 138 mmol/L (135-145); Total Cholesterol 124 mg/dl (50-199); Triglyceride 100 mg/dl (10-149); Very Low Density Lipoprotein 20 mg/dl (0-30); eGFR > 60.00
[2024-02-11] MEDS: SYNTHROID 125 MCG PO (05:26)
[2024-02-11] MEDS: TYLENOL 650 MG PO (05:28)
--- NOTE | 2024-02-11 07:50 | PTCARENOTE ---
Assumed care of pt from prev nsg shift; Pt AAOx3 w/no c/o CP, throat pain, or SOB this AM. Pt's VS stable w/HR in the 60's & BP this 100/69. Pt is SR w/1st deg AV block & BBB noted on telemetry monitoring. Pt w/occas PVC's, but much less frequent
than this RN's prev shift w/pt yesterday. Pt w/call chao within reach & plan of care ongoing.
[2024-02-11] MEDS: OSCAL 500 + D 500 MG PO ×3 (10:10→23:08)
[2024-02-11] MEDS: VITAMIN B-12 1000 MCG PO (10:10)
[2024-02-11] MEDS: IMDUR (EXTENDED RELEASE) 30 MG PO (10:10)
[2024-02-11] MEDS: PACERONE 400 MG PO ×3 (10:10→23:08)
[2024-02-11] MEDS: COZAAR 100 MG PO (10:10)
[2024-02-11] MEDS: VITAMIN D3 (cholecalciferol) 50 MCG PO (10:11)
[2024-02-11] MEDS: PROSCAR 5 MG PO (10:11)
[2024-02-11] MEDS: THERAGRAN 1 TABLET PO (10:11)
[2024-02-11] MEDS: LOW STRENGTH ASPIRIN 81 MG PO (10:11)
[2024-02-11] MEDS: TOPROL XL 50 MG PO (10:11)
[2024-02-11] MEDS: BRILINTA 90 MG PO ×2 (10:11→19:20)
[2024-02-11] MEDS: LIPITOR 40 MG PO (10:11)
[2024-02-11] MEDS: FLOMAX 0.4 MG PO (10:12)
--- NOTE | 2024-02-11 11:41 | W.PN.CARDCBS ---
Today's Communication / Plan
-
Continue aspirin, Brilinta
Continue atorvastatin 40mg daily
Amiodarone 400mg TID, reduced to 200 mg TID 02/11
Echo monday
Impression / Plan
-
PCP: Dr. Harper
Sustain Engineer: Dr. Edmonds
Impression:
Presented with chest pain
Inferior STEMI 02/10/2024
NSVT
h/o [place] 12/2005
CAD
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
100% distal RCA occlusion s/p overlapping NATALIE 02/10/2024
proximal RCA dissection s/p NATALIE 02/10/2024
HTN
HLD
SABRINA
RBBB
Thyroid mass s/p thyroidectomy 02/08/2024
LHC 02/10/2024: LM: Congenitally absent. LAD: Arises directly off the aorta, minor luminal irregularities. 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 70% lesion of proximal OM1. RCA:
Severe tortuosity in the proximal vessel with a whitaker's crook, acutely occluded in the distal margin. Intervention: Successful PCI of acute distal RCA occlusion w/ overlapping [place]ian 3.5 x 31 and 3.5 x 15 NATALIE. Successful PCI of proximal RCA
GuideLiner dissection w/ [place] 4.5 x 15 mm NATALIE.
Plan:
-Presented 02/09/2024 w/ approximately 4 hours of chest pain. Initial EKG showed inferior STEMI. Taken urgently to scientific laboratory supervisor.
-Found to have 100% occlusion of distal RCA which was successfully stented. Also had dissection of proximal RCA which was successfully stented.
-No further chest pain this AM.
-Troponin peak 44, downtrending
-Continue DAPT with aspirin and Brilinta.
-Check echo Monday, 02/11.
-BP stable. Continue Imdur, Losartan, and Toprol.
-Calcium supplementation resumed
-EKG this AM improved. Remains in SR on telemetry, however is having runs of NSVT, asymptomatic.
-Will start amiodarone 400mg TID, reduced to 200 mg TID 02/11. Continue Toprol 50mg daily.
-K 4.5. Mag 1.7. Mag repleted 02/09. Keep K >4, mag >2.
-Hgb A1c pending.
-Check CVE in AM. Continue lipitor 40mg daily.
Progress Note - Sustain Engineer
Subjective
Date of Service: February 11, 2024
Patient seen and examined. No acute events overnight. Patient resting comfortably in bed. No cp, sob, palpitations, or weakness. Ambulating to bathroom without difficulty. SR on telemetry; rare PVC, single brief AIVR overnight. Asymptomatic.
Objective
Labs:
02/11/24 04:28
02/11/24 04:28
Labs
Hgb 12.0 g/dL (13.0-18.0) L 02/11/24 04:28
Hct 34.7 % (39.0-52.0) L 02/11/24 04:28
Plt Count 98 10^3/uL (130-400) L 02/11/24 04:28
APTT 28.3 Sec (23.4-35.0) 02/10/24 00:11
Sodium 138 mmol/L (135-145) 02/11/24 04:28
Potassium 3.9 mmol/L (3.5-5.1) 02/11/24 04:28
BUN 25 mg/dl (9-20) H 02/11/24 04:28
Creatinine 1.0 mg/dL (0.7-1.3) 02/11/24 04:28
Glucose 100 mg/dl (70-99) H 02/11/24 04:28
Troponins
02/10/24 02/10/24 02/10/24
00:11 03:48 11:11
Troponin I < 0.012 17.700 H* D 44.200 H* D
02/10/24
17:42
Troponin I 37.200 H*
Vital Signs and I&O:
Vital Signs
Temp Pulse Resp BP Pulse Ox
97.9 F 78 20 100/69 97
02/11/24 07:05 02/11/24 08:30 02/11/24 07:05 02/11/24 07:08 02/11/24 07:05
Vital Signs
Temp Pulse Resp BP Pulse Ox
97.9 F 78 20 100/69 97
02/11/24 07:05 02/11/24 08:30 02/11/24 07:05 02/11/24 07:08 02/11/24 07:05
Intake & Output
02/09/24 02/10/24 02/11/24 02/12/24
06:59 06:59 06:59 06:59
Intake Total 1060 / 1060
Balance 1060 / 1060
Physical Exam
Physical Exam
GEN: No distress, awake, alert, oriented x3
HEENT: supple, anicteric, mmm
LUNGS: CTA b/l, no wheezes/rales
CV: Reg, S1/S2, no murmur
EXT: No clubbing, cyanosis, or edema
NEURO: Gross non-focal
SKIN: Warm, dry no rash. R groin soft, dressing c/d/i
--- NOTE | 2024-02-11 20:21 | PTCARENOTE ---
Pt. received at change of shift. Pt. seen and assessed in room. Pt. AOx3, and daughter at bedside. No complaints of pain at this time. SBP 90s, no symptoms of dizziness. Tele reading NSR w/ 1st degree AV block. R femoral site c/d/i. R radial
site DORIS. Both sites soft. RN explains plan of care to pt at this time. Pt. verbalizes understanding. Call chao within reach. Continuing to monitor at this time.
[2024-02-12] VITALS (7 sets, daily range): BP systolic 95–118; BP diastolic 49–82; BMI 26.8
[2024-02-12] MEDS: ANESTHETIC LOZENGE 1 LOZENGE PO ×3 (00:38→22:13)
[2024-02-12] MEDS: SYNTHROID 125 MCG PO (05:03)
[2024-02-12 05:18] LABS: Hematocrit 36.3 % (39.0-52.0); Hemoglobin 12.7 g/dL (13.0-18.0); Mean Corpuscular Hgb 29.6 pg (27.0-31.0); Mean Corpuscular Volume 84.6 fL (80.0-94.0); Mean Platelet Volume 10.6 fL (7.4-10.4); Platelet Count 107 10^3/uL (130-400); Red Blood Cell Count 4.29 10^6/uL (4.70-6.10); Red Cell Dist. Width 13.5 % (11.5-14.5); White Blood Cell Count 5.1 10^3/uL (4.8-10.8)
[2024-02-12 05:30] LABS: Blood Urea Nitrogen 27 mg/dl (9-20); Calcium 9.3 mg/dl (8.4-10.2); Carbon Dioxide 27 mmol/L (22-30); Chloride 101 mmol/L (98-107); Estimated Creatinine Clearance 50 ml/min; Glucose 99 mg/dl (70-99); Potassium 3.9 mmol/L (3.5-5.1); Sodium 138 mmol/L (135-145); eGFR > 60.00
[2024-02-12] MEDS: VITAMIN D3 (cholecalciferol) 50 MCG PO (08:01)
[2024-02-12] MEDS: VITAMIN B-12 1000 MCG PO (08:01)
[2024-02-12] MEDS: IMDUR (EXTENDED RELEASE) 30 MG PO (08:01)
[2024-02-12] MEDS: THERAGRAN 1 TABLET PO (08:01)
[2024-02-12] MEDS: PROSCAR 5 MG PO (08:01)
[2024-02-12] MEDS: LIPITOR 40 MG PO (08:01)
[2024-02-12] MEDS: TOPROL XL 50 MG PO (08:01)
[2024-02-12] MEDS: OSCAL 500 + D 500 MG PO ×3 (08:01→22:12)
[2024-02-12] MEDS: LOW STRENGTH ASPIRIN 81 MG PO (08:02)
[2024-02-12] MEDS: BRILINTA 90 MG PO ×2 (08:02→19:38)
[2024-02-12] MEDS: COZAAR 100 MG PO (08:02)
[2024-02-12] MEDS: PACERONE 200 MG PO ×3 (08:02→22:12)
--- NOTE | 2024-02-12 08:56 | W.PN.CARDCBS ---
Addendum entered and electronically signed by Alphonse Baker MD 02/12/24 12:55:
He has chronic thrombocytopenia, mild,Now on DAPT, will need to follow
Addendum entered and electronically signed by Alphonse Baker MD 02/12/24 09:48:
83-year-old man with inferior MA treated with RCA PCI
He has atypical chest pain, EKG done at the time of evaluation does not show acute changes just evolving inferior MA, and daughter at bedside
PMH: [place] 2005 with chronic total occlusion of right posterolateral, hypertension, hyperlipidemia, sleep apnea, right bundle branch block, thyroidectomy February 06
PSH: Prior ear and neck surgery, tonsillectomy, herniorrhaphy, thyroidectomy January 2024
Allergies reviewed
Medications reviewed
Current medications aspirin 81 mg a day, Brilinta 90 mg twice daily, atorvastatin 40 mg a day, vitamin D, vitamin B12, finasteride 5 mg a day, isosorbide mononitrate 30 mg daily, Synthroid 125 mcg daily, losartan 100 mg a day, metoprolol 50 mg a
day, tamsulosin 0.4 mg daily, amiodarone 200 mg twice daily
113/83, pulse 78, resp rate 16, afebrile, appears somewhat anxious, head neck exam unremarkable lungs are clear cardiac exam regular rate and rhythm without murmurs gallops abdomen benign extremities without clubbing cyanosis or edema distal pulses
intact, integumentary musculoskeletal normal
EKG on the : Sinus rhythm inferior MA right bundle branch block, left axis, borderline first-degree AV block, stat EKG obtained now without acute changes
Hemoglobin 12.7, platelets 107, Has been thrombocytopenic in the past peak troponin was 44
Impression:
Inferior STEMI February 09
Thyroidectomy February 06
Longstanding HISTOTECHNICIAN of right posterolateral with prior MA 2005
Hypercholesterolemia
Hypertension obstructive sleep apnea
Echo is pending
Plan:
Suspect his current symptoms are not related to technical issue with stents/recurrent ischemia but will continue to trend troponin.
Given ongoing symptoms we will hold on discharge today.
No further VT, on amiodarone.
Await echocardiogram.
Original Note:
Today's Communication / Plan
-
Echo today
Continue DAPT with aspirin, brilinta
Continue amiodarone 200mg TID, will reduce to 200mg BID at discharge
Continue losartan, Toprol, Imdur
Continue amiodarone
Possibly for d/c later today pending echo results
Impression / Plan
-
PCP: Dr. Harper
Can Machine Operator: Dr. Edmonds
Impression:
Presented with chest pain
Inferior STEMI 02/10/2024
NSVT
h/o [place] 12/2005
CAD
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
100% distal RCA occlusion s/p overlapping NATALIE 02/10/2024
proximal RCA dissection s/p NATALIE 02/10/2024
HTN
HLD
SABRINA
RBBB
Thyroid mass s/p thyroidectomy 02/08/2024
LHC 02/10/2024: LM: Congenitally absent. LAD: Arises directly off the aorta, minor luminal irregularities. 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 70% lesion of proximal OM1. RCA:
Severe tortuosity in the proximal vessel with a whitaker's crook, acutely occluded in the distal margin. Intervention: Successful PCI of acute distal RCA occlusion w/ overlapping [place] 3.5 x 31 and 3.5 x 15 NATALIE. Successful PCI of proximal RCA
GuideLiner dissection w/ [place] 4.5 x 15 mm NATALIE.
Echo 02/12/2024: Study pending
Plan:
-Presented 02/09/2024 w/ approximately 4 hours of chest pain. Initial EKG showed inferior STEMI. Taken urgently to rn lab.
-Found to have 100% occlusion of distal RCA which was successfully stented. Also had dissection of proximal RCA which was successfully stented.
-No further chest pain this admission. Troponin peaked at 44, trending down thereafter.
-Continue DAPT with aspirin and Brilinta.
-Echo pending today.
-BP stable. Continue Imdur, Losartan, and Toprol.
-Remains in SR on telemetry. No further NSVT. Continue amiodarone 200mg TID. Will decrease to 200mg BID at discharge
-Hgb A1c 5.5%.
-LDL 39. Continue lipitor 40mg daily.
Progress Note - Can Machine Operator
Subjective
Date of Service: February 12, 2024
No complaints. No further chest hull or dizziness. Does have a cough which he reports is chronic.
Objective
Labs:
02/12/24 04:46
02/12/24 04:46
Labs
Hgb 12.7 g/dL (13.0-18.0) L 02/12/24 04:46
Hct 36.3 % (39.0-52.0) L 02/12/24 04:46
Plt Count 107 10^3/uL (130-400) L 02/12/24 04:46
APTT 28.3 Sec (23.4-35.0) 02/10/24 00:11
Sodium 138 mmol/L (135-145) 02/12/24 04:46
Potassium 3.9 mmol/L (3.5-5.1) 02/12/24 04:46
BUN 27 mg/dl (9-20) H 02/12/24 04:46
Creatinine 1.1 mg/dL (0.7-1.3) 02/12/24 04:46
Glucose 99 mg/dl (70-99) 02/12/24 04:46
Troponins
02/10/24 02/10/24 02/10/24
00:11 03:48 11:11
Troponin I < 0.012 17.700 H* D 44.200 H* D
02/10/24
17:42
Troponin I 37.200 H*
Vital Signs and I&O:
Vital Signs
Temp Pulse Resp BP Pulse Ox
97.9 F 78 16 113/83 96
02/12/24 08:00 02/11/24 23:08 02/12/24 08:00 02/11/24 23:08 02/12/24 08:00
Vital Signs
Temp Pulse Resp BP Pulse Ox
97.9 F 78 16 113/83 96
02/12/24 08:00 02/11/24 23:08 02/12/24 08:00 02/11/24 23:08 02/12/24 08:00
Intake & Output
02/10/24 02/11/24 02/12/24 02/13/24
06:59 06:59 06:59 06:59
Intake Total 1060 / 1060 740 / 740
Balance 1060 / 1060 740 / 740
Physical Exam
Physical Exam
GEN: No distress, awake, alert, oriented x3
HEENT: supple, anicteric, mmm
LUNGS: CTA b/l, no wheezes/rales
CV: Reg, S1/S2, no murmur
EXT: No clubbing, cyanosis, or edema
NEURO: Gross non-focal
SKIN: Warm, dry no rash.
--- NOTE | 2024-02-12 09:39 | PTCARENOTE ---
family members came out to inform us that patient is having chest pain. in room patient has his hand over his heart stating the pain is there, nonradiating, 2 out of 10, patient stated that the pain comes and goes, monitor shows NSR, BP 106/73, HR
68, placed o2 on 2LNC o2 sat 96%, EKG completed and Dr. Liana Baker at bedside. patient is presently CP free.
--- NOTE | 2024-02-12 10:10 | CARDSERVLU ---
Echocardiogram with [facility] completed after protocol screening completed. Allergies verified.
Patent IV site: __L AC___
IV site flushed with 0.9% NaCl pre and post administration.
Diluted bolus method utilized to enhance visualization of ventricular maurice.
Total volume given: __2.5__ mL
Patient tolerated all procedures well without complications.
[2024-02-12] MEDS: FLOMAX 0.4 MG PO (10:48)
--- NOTE | 2024-02-12 11:22 | CM ---
Chart reviewed. Patient is independent of ADLS, lives with his in a 2 STH, 0 ROSA, 0 DME. Plan is for the patient to return home. CM to follow
--- NOTE | 2024-02-12 11:22 | CM ---
Pricing on Brilinta through the patient 's prescription plan is $213. The patient has a combined medical and prescription plan of $6000. After the patient meets his deductible the cost is $0. I gave the patient a free 30 day coupon. I placed it
in the patient's red discharge folder
[2024-02-12] MEDS: COLACE 100 MG PO ×2 (15:00→19:38)
--- NOTE | 2024-02-12 19:09 | W.PN.ENT ---
Today's Communication
-
OK to follow up with ENT as scheduled.
Impression / Plan
-
The patient is healing well after total thyroidectomy. He will follow up in the office with ENT on Monday for suture removal.
Subjective Data
-
The patient is doing well with regard to his total thyroidectomy. He denied neck pain.
Objective Data
-
Vital Signs
Temp Pulse Resp BP Pulse Ox
98.0 F 67 16 95/67 94
02/12/24 15:01 02/12/24 15:00 02/12/24 15:01 02/12/24 15:00 02/12/24 15:01
Intake & Output
02/11/24 02/12/24 02/13/24
06:59 06:59 06:59
Intake:
Oral fluids 1060 / 1060 740 / 740 400 / 400
Other:
Number of approximated MODERATE 1 2 2
amounts of urine
Number of approximated LARGE 1
amounts of urine
Lab Results
02/12/24 04:46
02/12/24 04:46
APTT 28.3 Sec (23.4-35.0) 02/10/24 00:11
Calcium 9.3 mg/dl (8.4-10.2) 02/12/24 04:46
Magnesium 1.7 mg/dl (1.6-2.3) 02/10/24 03:48
Total Bilirubin 1.4 mg/dl (0.2-1.3) H 02/10/24 00:11
AST 41 U/L (17-59) 02/10/24 00:11
ALT 12 U/L (0-50) 02/10/24 00:11
Alkaline Phosphatase 30 U/L (38-126) L 02/10/24 00:11
Triglycerides 100 mg/dl (10-149) 02/11/24 04:28
LDL Cholesterol, Calc 39 mg/dl 02/11/24 04:28
VLDL Cholesterol, Calc 20 mg/dl (0-30) 02/11/24 04:28
HDL Cholesterol 65 mg/dl 02/11/24 04:28
Physical Exam
-
Incision is clean dry and intact.
Voice is strong
[2024-02-12] MEDS: FLUSH (NSS) 1 FLUSH IV (19:39)
--- NOTE | 2024-02-12 23:59 | PTCARENOTE ---
Received patient at change of shift. Patient awake, alert, and oriented sitting in bed. BP 111/72, Sinus with BBB 65-75, 98% on room air. Right groin site clean, dry, and intact, soft with no hematoma. Right radial site open to air. Patient denies
any chest pain. Discussed plan of care. Call chao within reach.
[2024-02-13] MEDS: ROBITUSSIN DM 10 ML PO (00:05)
[2024-02-13 05:57] VITALS: BP 123/85
[2024-02-13] MEDS: SYNTHROID 125 MCG PO (05:59)
[2024-02-13 07:46] VITALS: BP 115/76
[2024-02-13] MEDS: THERAGRAN 1 TABLET PO (07:56)
[2024-02-13] MEDS: COZAAR 100 MG PO (07:56)
[2024-02-13] MEDS: LIPITOR 40 MG PO (07:56)
[2024-02-13] MEDS: BRILINTA 90 MG PO (07:56)
[2024-02-13] MEDS: VITAMIN D3 (cholecalciferol) 50 MCG PO (07:56)
[2024-02-13] MEDS: VITAMIN B-12 1000 MCG PO (07:56)
[2024-02-13] MEDS: IMDUR (EXTENDED RELEASE) 30 MG PO (07:56)
[2024-02-13] MEDS: COLACE 100 MG PO (07:56)
[2024-02-13] MEDS: OSCAL 500 + D 500 MG PO ×2 (07:56→16:07)
[2024-02-13] MEDS: PACERONE 200 MG PO (07:57)
[2024-02-13] MEDS: TOPROL XL 50 MG PO (07:57)
[2024-02-13] MEDS: PROSCAR 5 MG PO (07:57)
[2024-02-13] MEDS: LOW STRENGTH ASPIRIN 81 MG PO (07:57)
[2024-02-13] MEDS: PROTONIX 40 MG PO (09:24)
[2024-02-13] MEDS: FLOMAX 0.4 MG PO (09:24)
--- NOTE | 2024-02-13 09:34 | W.PN.CARDCBS ---
Addendum entered and electronically signed by Lanny Guan PA-C 02/13/24 15:21:
[id number]
Addendum entered and electronically signed by Lanny Guan PA-C 02/13/24 11:42:
Unable to to determine if STEMI is related to/associated with/due to recent thyroidectomy.
Addendum entered and electronically signed by Abel Edmonds MD 02/13/24 11:03:
I saw and examined the patient.
The VULCANIZED FIBER UNIT OPERATOR or PA's note was reviewed and I agree with the note.
Comment: General: Well developed, well nourished in NAD.
Neck: Supple, no JVD, HJR, carotids +2 B/L, no bruits bilaterally.
Heart: Non displaced PMI, RRR, no murmurs, No S3, S4, no rubs.
Lungs: Scattered rhonchi at the bases
Extremities: No clubbing, cyanosis or edema bilaterally.
Neuro: Grossly nonfocal, awake, alert and oriented x3.
Chest pain has resolved. Discussed in detail with patient and daughter at bedside. Will decrease amiodarone to 200 mg p.o. twice daily. He has some stomach upset which might be due to amiodarone and Brilinta. He wishes to go to [place]
February 2024 will reassess when seen in office. All questions answered. Discharge time greater than 30 minutes
Original Note:
Today's Communication / Plan
-
no further CP
continue asa, brilinta, toprol, losartan, imdur, lipitor
amiodarone 200mg BID for 30 days then decrease to 200mg daily
cardiac rehab
OP cardiac follow up arranged
for DC today
Impression / Plan
-
PCP: Dr. Harper
Perfume And Toilet Water Maker: Dr. Edmonds
Impression:
Presented with chest pain
Inferior STEMI 02/10/2024
NSVT
h/o [place] 12/2005
CAD
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
100% distal RCA occlusion s/p overlapping NATALIE 02/10/2024
proximal RCA dissection s/p NATALIE 02/10/2024
HTN
HLD
SABRINA
RBBB
Thyroid mass s/p thyroidectomy 02/08/2024
LHC 02/10/2024: LM: Congenitally absent. LAD: Arises directly off the aorta, minor luminal irregularities. 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 70% lesion of proximal OM1. RCA:
Severe tortuosity in the proximal vessel with a whitaker's crook, acutely occluded in the distal margin. Intervention: Successful PCI of acute distal RCA occlusion w/ overlapping [place] 3.5 x 31 and 3.5 x 15 NATALIE. Successful PCI of proximal RCA
GuideLiner dissection w/ [place] 4.5 x 15 mm NATALIE.
Echo 02/12/2024: EF 45 to 50%, mild LVH, inferoseptal/inferior hypokinesis and basal/mid inferior lateral akinesis, MAC, mild MR, aortic sclerosis, mild AR, normal right heart
Plan:
-Patient with recent thyroidectomy for thyroid cancer 02/08/24 presented 02/09/2024 w/ approximately 4 hours of chest pain. Initial EKG showed inferior STEMI. Taken urgently to car barn laborer.
-Found to have 100% occlusion of distal RCA which was successfully stented. Also had dissection of proximal RCA which was successfully stented.
-No further chest pain. Troponin peaked at 44, trending down thereafter.
-Continue DAPT with aspirin and Brilinta. added Protonix today
-R groin site soft, NTTP with mild dale-incisional ecchymoses
-Echo results as above, EF 45%, reviewed with patient and at bedside
-BP stable. Continue Imdur, Losartan, and Toprol. could consider addition of aldactone, SGLT2 inhibitor as OP
-Remains in SR on telemetry. No further NSVT. decreased amio to 200mg BID to continue for 30 days upon DC then decrease to 200mg daily
-Hgb A1c 5.5%.
-LDL 39. Continue lipitor 40mg daily.
-cardiac rehab
-OP cardiac follow up arranged
-ok for DC to home today
-d/w nursing
-total DC time 39 minutes
Progress Note - Perfume And Toilet Water Maker
Subjective
Date of Service: February 13, 2024
no CP overnight.
Objective
Labs:
02/12/24 04:46
02/12/24 04:46
Labs
Hgb 12.7 g/dL (13.0-18.0) L 02/12/24 04:46
Hct 36.3 % (39.0-52.0) L 02/12/24 04:46
Plt Count 107 10^3/uL (130-400) L 02/12/24 04:46
APTT 28.3 Sec (23.4-35.0) 02/10/24 00:11
Sodium 138 mmol/L (135-145) 02/12/24 04:46
Potassium 3.9 mmol/L (3.5-5.1) 02/12/24 04:46
BUN 27 mg/dl (9-20) H 02/12/24 04:46
Creatinine 1.1 mg/dL (0.7-1.3) 02/12/24 04:46
Glucose 99 mg/dl (70-99) 02/12/24 04:46
Troponins
02/10/24 02/10/24
11:11 17:42
Troponin I 44.200 H* D 37.200 H*
Vital Signs and I&O:
Vital Signs
Temp Pulse Resp BP Pulse Ox
97.8 F 75 18 115/76 97
02/13/24 07:47 02/13/24 08:02 02/13/24 07:47 02/13/24 07:46 02/13/24 08:00
Vital Signs
Temp Pulse Resp BP Pulse Ox
97.8 F 75 18 115/76 97
02/13/24 07:47 02/13/24 08:02 02/13/24 07:47 02/13/24 07:46 02/13/24 08:00
Intake & Output
02/11/24 02/12/24 02/13/24 02/14/24
07:59 07:59 07:59 07:59
Intake Total 1060 / 1060 740 / 740 400 / 800 400 / 400
Balance 1060 / 1060 740 / 740 400 / 800 400 / 400
Physical Exam
Physical Exam
GEN: No distress, awake, alert, oriented x3
HEENT: supple, anicteric, mmm, eomi. Neck incision with dressing c/d/i.
LUNGS: CTA B/L, no wheezes/rales
CV: Reg, S1/S2, no murmur
ABD: soft, BS+, NT/ND
EXT: No cyanosis, clubbing, edema
NEURO: Gross non-focal
SKIN: Warm, pink, dry. No rash. R groin site soft, NTTP, mild dale-incisional ecchymoses
--- NOTE | 2024-02-13 11:19 | PN.CDI ---
CDI
- -
CDI:
Physician Documentation Request
Admit Date: 02/10/24 02:28
Dear Lanny Guan,
Patient with recent thyroidectomy for thyroid cancer 02/08/24 presented 02/09/2024 w/ approximately 4 hours of chest pain. Initial EKG showed inferior STEMI
Found to have 100% occlusion of distal RCA which was successfully stented. Also had dissection of proximal RCA which was successfully stented
Please clarify the relationship between these conditions:
Yes, STEMI is related to/associated with/due to recent thyroidectomy
No, STEMI is not related to/associated with/due to recent thyroidectomy
Unable to determine
Use of terms such as suspected, likely, concern for, or probable (associated with a specific diagnosis that is being evaluated, monitored, or treated as if it exists) are acceptable and can be coded in the inpatient setting, when documented at the
time of discharge.
Thank you,
Florinda Wiley RN, BSN
CDI Specialist
tiger text
Please use your independent medical judgment in providing your response.
[2024-02-13 11:23] VITALS: BP 98/64
--- NOTE | 2024-02-13 15:14 | W.DS.TRANS ---
DC Summary - Test Design Engineer
-
Discharge Instructions:
Discharge Diagnosis/Procedures STEMI, RCA stents x2
Diet Low Cholesterol
Additional Activity No lifting > 10 lbs for 1 week
Driving Restrictions No driving for 24 hours
Bathing Restrictions OK to Shower
Other Services Cardiac Rehab
Instructions:
Stand-Alone Forms: DC Instructions- Cath/EP Lab
Changes to Home Medications: Yes
Discharge Medications:
DC Medications w/original date entered in [facility]
krill 300 mg-omega 3 90 mg-dha 24 mg-epa 50 [id number] capsule (MegaRed [place]-3 Krill Oil) 300 mg PO DAILY Supplement 07/03/15
aspirin 81 mg tablet,delayed release 81 mg PO DAILY Blood Clot Prevention/Tx 09/14/18
atorvastatin 40 mg tablet 40 mg PO DAILY High Cholesterol 09/14/18
coenzyme [id number] E 100 mg-100 unit capsule 1 cap PO DAILY Supplement 09/14/18
azelastine 137 mcg (0.1 %) nasal spray 1 spray intranasal BID Allergies 02/02/24
multivitamin with folic acid 400 mcg tablet (Tab-A-Jas) 1 tab PO DAILY #30 tabs 02/09/24
tamsulosin 0.4 mg capsule 0.4 mg PO DAILY@0900 Urinary issue #30 caps 02/09/24
amiodarone 200 mg tablet 200 mg PO BID #60 tabs 02/12/24
ticagrelor 90 mg tablet (Brilinta) 90 mg PO BID #60 tabs 02/12/24
L.acidoph, paracasei,B. lactis 10 billion cell capsule 10,000,000,000 cell PO DAILY PROBIOTIC #0 caps 02/13/24
amiodarone 200 mg tablet 200 mg PO DAILY #30 tabs 02/13/24
calcium 500 mg (as carbonate)-vitamin D3 5 mcg (200 unit) tablet (Oyster Shell Calcium-Vitamin D3) 2 tab PO TID 7 days #42 tabs 02/13/24
cholecalciferol (vitamin D3) 50 mcg (2,000 unit) tablet 2,000 unit PO DAILY Supplement #0 tabs 02/13/24
cyanocobalamin (vitamin B-12) 1,000 mcg tablet 1,000 mcg PO DAILY Supplement #0 tabs 02/13/24
finasteride 5 mg tablet 5 mg PO DAILY Urinary Issue #0 tabs 02/13/24
hydrocodone 5 mg-acetaminophen 325 mg tablet 1 tab PO Q4HPRN PRN moderate pain #14 tabs 02/13/24
isosorbide mononitrate 30 mg tablet,extended release 24 hr 30 mg PO DAILY Heart Disease/Condition #0 tabs 02/13/24
levothyroxine 125 mcg tablet 125 mcg PO DAILY @ 0600 30 days #30 tabs 02/13/24
losartan 50 mg tablet 100 mg (2 x 50 mg) PO DAILY #0 tabs 02/13/24
metoprolol succinate 50 mg tablet,extended release 24 hr 50 mg PO DAILY #0 tabs 02/13/24
pantoprazole 40 mg tablet,delayed release 40 mg PO DAILY #30 tabs 02/13/24
Home Medication Changes
amiodarone is new, continue 200mg twice daily for 30 days then decrease to 200mg daily
protonix and brilinta are new
Pending Results: No
[2024-02-13 16:06] VITALS: BP 96/61
--- NOTE | 2024-02-13 17:41 | PTCARENOTE ---
Tele pack and IV removed. Belongings packed and sent home with patient. Discharge instructions reviewed w/ pt and family members. Verbalizes understanding. Escorted via wheelchair and staff assist. Discharged to home.
== END 2024-02-13 17:39 | disposition home or self-care (01) | DRG 322 ==
LOC: IVU 02:28
PROVIDERS: ADMITTING PHYSICIAN Internal Medicine Cardiovascular Disease; ATTENDING PHYSICIAN Internal Medicine Cardiovascular Disease; CONSULT PHYSICIAN Otolaryngology; EMERGENCY PHYSICIAN Emergency Medicine; FAMILY PHYSICIAN Family Medicine
PROC: B2151ZZ Fluoroscopy of Left Heart using Low Osmolar Contrast (ICD-10-PCS; 2024-02-10)
PROC: B2111ZZ Fluoroscopy of Multiple Coronary Arteries using Low Osmolar Contrast (ICD-10-PCS; 2024-02-10)
PROC: 4A023N7 Measurement of Cardiac Sampling and Pressure, Left Heart, Percutaneous Approach (ICD-10-PCS; 2024-02-10)
PROC: 027035Z Dilation of Coronary Artery, One Artery with Two Drug-eluting Intraluminal Devices, Percutaneous Approach (ICD-10-PCS; 2024-02-10)
DX: I21.19 ST elevation (STEMI) myocardial infarction involving other coronary artery of inferior wall (principal); I47.20 Ventricular tachycardia, unspecified; I10 Essential (primary) hypertension; E78.00 Pure hypercholesterolemia, unspecified; G47.33 Obstructive sleep apnea (adult) (pediatric); I45.10 Unspecified right bundle-branch block; I25.10 Atherosclerotic heart disease of native coronary artery without angina pectoris
CPT/HCPCS: 88307; 80048; 80053; 80061; 82330; 82962; 83036; 83735; 84484; 85025; 85027; 85347; 85730; 93005; 93306; 93458; 96374; 96375; 99291; C1725; C1760; C1769; C1874; C1894; C9606; Q9950; Q9967

== ENCOUNTER 2024-03-22 08:43 | Outpatient (RCR) | payer MEDICARE, BC, SELFPAY | END 2024-03-22 23:59 | disposition home or self-care (01) | LOC: CRHB 08:43 | PROVIDERS: ATTENDING PHYSICIAN Internal Medicine Cardiovascular Disease | DX: I25.2 Old myocardial infarction (principal); I25.10 Atherosclerotic heart disease of native coronary artery without angina pectoris; Z95.5 Presence of coronary angioplasty implant and graft | CPT/HCPCS: G0422; G0423 ==

== ENCOUNTER 2024-04-22 08:48 | Outpatient (RCR) | payer MEDICARE, BC, SELFPAY | END 2024-04-22 23:59 | disposition home or self-care (01) | LOC: CRHB 08:48 | PROVIDERS: ATTENDING PHYSICIAN Internal Medicine Cardiovascular Disease | DX: I21.01 ST elevation (STEMI) myocardial infarction involving left main coronary artery (principal); I25.10 Atherosclerotic heart disease of native coronary artery without angina pectoris (principal); Z95.5 Presence of coronary angioplasty implant and graft; I25.2 Old myocardial infarction | CPT/HCPCS: G0422; G0423 ==

== ENCOUNTER 2024-05-24 08:58 | Outpatient (RCR) | payer MEDICARE, BC, SELFPAY | END 2024-05-24 23:59 | disposition home or self-care (01) | LOC: CRHB 08:58 | PROVIDERS: ATTENDING PHYSICIAN Internal Medicine Cardiovascular Disease | DX: I21.01 ST elevation (STEMI) myocardial infarction involving left main coronary artery (principal); Z95.5 Presence of coronary angioplasty implant and graft | CPT/HCPCS: G0422; G0423 ==

== ENCOUNTER 2024-06-21 08:44 | Outpatient (RCR) | payer MEDICARE, BC, SELFPAY ==
[2024-06-07 11:24] LABS: HDL Cholesterol 67 mg/dl; LDL Cholesterol, Calculated 57 mg/dl; Total Cholesterol 142 mg/dl (50-199); Triglyceride 90 mg/dl (10-149); Very Low Density Lipoprotein 18 mg/dl (0-30)
== END 2024-06-21 23:59 | disposition home or self-care (01) ==
LOC: CRHB 08:44
PROVIDERS: ATTENDING PHYSICIAN Internal Medicine Cardiovascular Disease; FAMILY PHYSICIAN Family Medicine; REFERRING PHYSICIAN Internal Medicine Cardiovascular Disease
DX: I25.2 Old myocardial infarction (principal); I21.01 ST elevation (STEMI) myocardial infarction involving left main coronary artery (principal); Z95.5 Presence of coronary angioplasty implant and graft
CPT/HCPCS: 36415; 80061; G0422; G0423

== ENCOUNTER 2024-06-28 07:30 | Outpatient (RCR) | payer MEDICARE, BC, SELFPAY | END 2024-06-28 12:01 | disposition other institution (70) | LOC: CRHB 07:30 | PROVIDERS: ATTENDING PHYSICIAN Internal Medicine Cardiovascular Disease; FAMILY PHYSICIAN Family Medicine; REFERRING PHYSICIAN Internal Medicine Cardiovascular Disease | DX: I21.01 ST elevation (STEMI) myocardial infarction involving left main coronary artery (principal); I25.2 Old myocardial infarction (principal); I25.10 Atherosclerotic heart disease of native coronary artery without angina pectoris; Z95.5 Presence of coronary angioplasty implant and graft | CPT/HCPCS: G0422; G0423 ==

== ENCOUNTER → 2024-11-01 13:53 | Outpatient (REF) | payer MEDICARE, BC, SELFPAY | LOC: RAD 13:53 | PROVIDERS: ATTENDING PHYSICIAN Family Medicine | DX: M54.50 Low back pain, unspecified (principal); M25.552 Pain in left hip | CPT/HCPCS: 72110; 73502; 73564 ==